=== PATIENT | female | born 1980 | race Caucasian/White ===

== ENCOUNTER 2018-11-12 08:31 | Day surgery (SDC) | payer MEDICAID ==
[~2018-11-12] VITALS: Ht 157.5 cm; Wt 136.4 kg
[2018-11-12 08:35] VITALS: BP 135/76
[2018-11-12] MEDS ORDERED: fentaNYL/PF 50MCG/1 ML 2ML syringe ONE (08:48)
[2018-11-12] MEDS ORDERED: LIDOcaine Viscous 15ml cup ONE (08:48)
[2018-11-12] MEDS ORDERED: MIDAZolam 5mg/5ml vial ONE (08:48)
[2018-11-12] MEDS ORDERED: NO HOME MEDS (09:05)
[2018-11-12 10:05] VITALS: BP 120/71
[2018-11-12 10:15] VITALS: BP 121/60
[2018-11-12 10:25] VITALS: BP 111/56
[2018-11-12 10:35] VITALS: BP 120/71
== END 2018-11-12 10:38 | disposition home or self-care (01) ==
LOC: GI LAB 08:31
PROVIDERS: ATTEND Internal Medicine Gastroenterology
DX: Z01.818 Encounter for other preprocedural examination (principal); E66.01 Morbid (severe) obesity due to excess calories; Z68.43 Body mass index [BMI] 50.0-59.9, adult
CPT/HCPCS: 43239; 99152; J2250; J3010; J7040; A4620

== ENCOUNTER 2022-03-16 23:53 | Emergency (ER) | payer MEDICAID ==
[~2022-03-16] VITALS: Ht 157.5 cm; Wt 63.6 kg
[~2022-03-16 23:53] MED LIST: NO HOME MEDS
--- NOTE | 2022-03-17 00:55 | NUR ---
more sugar applied by Dr Mccloud. It is shrinking.
--- NOTE | 2022-03-17 01:32 | NUR ---
pt cleansed and bag placed over stoma.
== END 2022-03-17 01:33 | disposition home or self-care (01) ==
LOC: ER 23:54
DX: K94.00 Colostomy complication, unspecified (principal); Z88.6 Allergy status to analgesic agent; Z88.5 Allergy status to narcotic agent; Z79.899 Other long term (current) drug therapy; K31.89 Other diseases of stomach and duodenum
CPT/HCPCS: 99281; A4421

== ENCOUNTER 2024-12-19 19:50 | Emergency (ER) | payer MEDICAID, OTHER ==
[~2024-12-19] VITALS: Ht 157.5 cm; Wt 66.6 kg
[2024-12-19 20:41] LABS: MEAN PLATELET VOLUME 7.8 FL (7.4-10.4); RED CELL DISTRIBUTION WIDTH 22.1 % (11.5-14.5)
[2024-12-19 20:53] LABS: CREATININE 1.03 MG/DL (0.40-0.90); TOTAL CARBON DIOXIDE 23.4 MMOL/L (24-32); eCRCL 56 ML/MIN; eGFR 58 ML/MIN
--- NOTE | 2024-12-19 22:01 | Physician Documentation ---
History of Present Illness Chief Complaint: Post-operative complication Stated Complaint: URINARY SYMPTOMS Time Seen by MD: 21:40 Primary Medical Doctor: LEÓN FRANCISCO HPI Patient presents to the emergency room for evaluation of left flank pain. Symptoms began a couple of weeks ago for which she was diagnosed with a urinary tract infection and placed on Keflex. She received a phone call that it was MRSA in his changed to Bactrim however her symptoms continued to worsen therefore she came in to be evaluated. Medication Reconciliation Allergies: Coded Allergies: acetaminophen (Unverified Allergy, Unknown, 03/17/22) hydrocodone (Unverified Allergy, Unknown, 03/17/22) Uncoded Allergies: PENICILLIN (Allergy, Unknown, 11/12/18) Miscellaneous Medications Home Med List (No Home Medications), (Reported) Past Medical History Past Medical History: *GI/HEPATOBILIARY* Past Surgical History: colectomy, tubal ligation Lives with: S/O, Family Lives In: Home Review of Systems ROS All review of systems negative except as per HPI Physical Exam Vital Signs: Temperature: 96.1, Source: Temporal, Heart Rate: 75, Respiratory Rate: 15, BP: 101/65, Pulse Oximetry: 99, Weight: 66.600 Physical Exam General: Patient is awake, alert, oriented x4 in no acute distress and well appearing.~ Head: Normocephalic and atraumatic. Eyes: Conjunctival normal. EOMI. PERRL. ENT: Mucous membranes moist. Neck: Supple, trachea is midline. Chest: Clear to auscultation bilaterally without rales, rhonchi, or wheezes. There is no accessory muscle use or retractions. Cardiac: RRR without murmurs, gallops, or rubs. Abd: Soft, nondistended, nontender, with normoactive bowel sounds. No guarding, rebound, or rigidity. Extremities: Normal strength. Normal range of motion. No deformities or edema. Back: No midline spinal or CVA tenderness. Skin: Warm and dry with no significant rash appreciated. Neuro: Cranial nerves II-XII grossly intact. No focal neuro deficits. Patient ambulating without difficulty. Progress Results/Orders Results/Orders Orders - OLMAN GIORDANO MD Culture Blood (12/19/24 20:12) Urinalysis, Cult If Indicated (12/19/24 20:12) Chest,Single View (12/19/24 20:12) Monitor (12/19/24 20:12) Oxygen (12/19/24 20:12) Saline Lock (12/19/24 20:12) Completed Orders - OLMAN GIORDANO MD Cbc/Diff (12/19/24 20:12) Chest,Single View (12/19/24 20:12) Procalcitonin (12/19/24 20:12) BMP (12/19/24 20:12) Lacticsepsis (12/19/24 20:12) Vital Signs 12/19/24 20:09 Temp 96.1 Pulse 75 Resp 15 B/P (MAP) 101/65 Pulse Ox 99 Laboratory Tests Test 12/19/24 20:25 White Blood Count 8.2 Red Blood Count 4.68 Hemoglobin 12.0 Hematocrit 36.9 Mean Corpuscular Volume 78.9 Mean Corpuscular Hemoglobin 25.7 L Mean Corpuscular Hemoglobin Concent 32.5 L Red Cell Distribution Width 22.1 H Platelet Count 214 Mean Platelet Volume 7.8 Neutrophils (%) (Auto) 58.5 Lymphocytes (%) (Auto) 27.4 Monocytes (%) (Auto) 7.4 Eosinophils (%) (Auto) 5.4 Basophils (%) (Auto) 1.3 H Neutrophils # (Auto) 4.8 Lymphocytes # (Auto) 2.2 Monocytes # (Auto) 0.6 Eosinophils # (Auto) 0.4 Basophils # (Auto) 0.1 CBC Comment Sodium Level 142 Potassium Level 4.2 Chloride Level 109 H Carbon Dioxide Level 23.4 L Anion Gap 10 Blood Urea Nitrogen 9 Creatinine 1.03 H Estimated GFR/1.73 m2 58 BUN/Creatinine Ratio 8.7 L Glucose Level 94 Lactic Acid Level 1.1 Calcium Level 8.6 Albumin 3.6 Procalcitonin < 0.05 Chemistry Comments Medical Decision Making Findings Attempts at obtaining labs from [facility] of failed. Offered patient to stay longer to obtain medical records from [facility] however she is feeling better and feels well enough to go home at this juncture. Positive flank pain along with urinary tract infection symptoms consistent with pyelon ephritis and we will treat accordingly with ER precautions discussed. Labs reassuring for no sepsis. Patient's pain is improved. Given overall impression and he had not feel patient requires CT scan at this time. Departure Disposition: HOME / SELF CARE / HOMELESS Impression: Primary Impression: Pyelonephritis Condition: Improved Discharge Instructions: Pyelonephritis, Adult, [id number] Referrals: NO PRIMARY CARE PROVIDER (PCP) Prescriptions Ondansetron 8mg ODT (Ondansetron Odt) 8 Mg Tab.rapdis 1 TAB PO Q6H for nausea/vomiting for 3 Days, #12 TAB 0 Refills Prov: OLMAN GIORDANO MD 12/20/24 Oxycodone Hcl/Acetaminophen 5/325 MG* (Percocet 5/325 MG*) 5 Mg/325 Mg Tablet 1-2 TAB PO Q6H PRN for moderate or severe pain, #20 TAB Prov: OLMAN GIORDANO MD 12/20/24 Ciprofloxacin HCl (Ciprofloxacin HCl) 500 Mg Tab 1 TAB PO Q12H for 10 Days, #20 TAB Prov: OLMAN GIORDANO MD 12/20/24 Education Educated: Patient Educated regarding: diagnosis, treatment, need for follow up Signature Scribe Signature: No scribe Attestation: The note accurately reflects work and decisions made by me.Olman Giordano MD 12/20/24 00:36 OLMAN GIORDANO MD Dec 19, 2024 22:01
--- NOTE | 2024-12-19 22:07 | RADIOLOGY REPORT ---
EXAM: DI CHEST,SINGLE VIEW CLINICAL HISTORY: SEPSIS TECHNIQUE: Single frontal view of the chest WID: COMPARISON: None FINDINGS: Lines and tubes: None Chest: The heart size and pulmonary vasculature is within normal limits. No pleural effusion, pneumothorax, or consolidation. The osseous structures are grossly intact. IMPRESSION: 1. No acute cardiopulmonary abnormality.
[2024-12-19 23:02] LABS: LEUKOCYTE ESTERASE ,URINE TRACE (Neg); NITRITES, URINE NEGATIVE (Neg); OCCULT BLOOD,URINE MODERATE (Neg)
[2024-12-19 23:06] LABS: UA COLLECTION TYPE CLN CATCH MIDSTREAM
[2024-12-19 23:09] LABS: CAL OXALATE CRYSTALS 1+ /HPF (NEGATIVE); MUCUS STRANDS FEW /LPF (Neg); SQUAMOUS EPITHELIAL CELL,UR FEW /LPF (FEW)
[2024-12-19] MEDS: oxyCODONE/APAP 5-325mg tablet PO ONE (23:39)
[2024-12-19] MEDS: ketorolac trometh 15mg/ml vial 15 MG/ML ML IV ONE (23:46)
[2024-12-19] MEDS: CefTRIAXone/D5W-Rocephin 1gm 50 ML IV ONE (23:48)
[2024-12-20] MEDS ORDERED: CIPR-458 PO (00:35)
[2024-12-20] MEDS ORDERED: ONDA-245 PO (00:35)
[2024-12-20] MEDS ORDERED: PER5325T PO (00:35)
[2024-12-20] MEDS ORDERED: fentaNYL/PF 50MCG/1 ML 2ML syringe IV ONE (00:55)
[2024-12-20 01:16] VITALS: BP 114/55; PULSE 93; RESP 16; TEMP 96.1; O2SAT 100
== END 2024-12-20 01:20 | disposition home or self-care (01) ==
LOC: ER 19:50
DX: N12 Tubulo-interstitial nephritis, not specified as acute or chronic (principal); Z90.49 Acquired absence of other specified parts of digestive tract; Z98.51 Tubal ligation status; Z87.440 Personal history of urinary (tract) infections; Z88.5 Allergy status to narcotic agent
CPT/HCPCS: 36415; 71045; 80048; 81001; 83605; 84145; 85025; 87040; 87088; 96365; 96375; 99284; J0696; J1885